=== PATIENT | male | born 1980 | race Caucasian/White ===

== ENCOUNTER 2019-11-02 16:17 | Emergency (ER) | payer BC ==
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
[2019-11-02 18:16] VITALS: BP 131/95; PULSE 79
--- NOTE | 2019-11-03 05:16 | CR ---
Right ankle: Single ankle mortise view was obtained of the right ankle. Ankle mortise is symmetric. No acute fracture or other bony abnormality is appreciated. Impression: 1. No abnormality is seen on ankle mortise right ankle exam. Diagnostic code #1 This report was dictated in [facility]T
--- NOTE | 2019-11-03 05:17 | CR ---
Right foot: 4 views of the right foot were obtained. Comparison: No previous puts study is available. Soft tissue swelling noted dorsally. Mild deformity and slight sclerosis seen within the proximal phalanx of the 4th toe having the appearance of old healed fracture. No acute fracture, dislocation or other bony abnormality is appreciated. Impression: 1. Soft tissue swelling. 2. No acute bony abnormality is appreciated. Diagnostic code #2 This report was dictated in MDT
== END 2019-11-02 18:03 | disposition home or self-care (01) ==
LOC: JD.ED 16:17
DX: S90.01XA Contusion of right ankle, initial encounter (principal); S50.812A Abrasion of left forearm, initial encounter; V29.9XXA Motorcycle rider (driver) (passenger) injured in unspecified traffic accident, initial encounter; Y92.410 Unspecified street and highway as the place of occurrence of the external cause
CPT/HCPCS: 73600-26-RT; 73600-RT; 73630-26-RT; 73630-RT; 99282; 99283-25